=== PATIENT | female | born 1990 | race Caucasian/White ===

== ENCOUNTER 2016-09-07 15:20 | Emergency (ER) | payer OTHER | END 2016-09-07 17:37 | disposition left against medical advice (07) | LOC: ER1 15:20 | DX: Z53.21 Procedure and treatment not carried out due to patient leaving prior to being seen by health care provider (principal) ==

== ENCOUNTER 2016-09-25 21:48 | Emergency (ER) | payer OTHER ==
[2016-09-25 23:27] LABS: HEMOGLOBIN 13.7 gm/dl (12.3-15.3); RED BLOOD COUNT 4.4 M/UL (4.00-5.10); WHITE BLOOD COUNT 6.5 K/UL (4.5-11.0)
[2016-09-25 23:53] LABS: BUN/CREATININE RATIO 20 (0-10)
== END 2016-09-26 01:38 | disposition home or self-care (01) ==
LOC: ER1 21:48
PROVIDERS: Physician Assistant
DX: R10.813 Right lower quadrant abdominal tenderness (principal); N83.202 Unspecified ovarian cyst, left side; F17.210 Nicotine dependence, cigarettes, uncomplicated; Z88.8 Allergy status to other drugs, medicaments and biological substances; Z86.711 Personal history of pulmonary embolism
CPT/HCPCS: 36415; 76830; 80053; 81001; 83690; 85025; 87086; 96361; 96374; 99284; J2405; J7030

== ENCOUNTER → 2016-09-25 | Outpatient (CLI) | payer OTHER | LOC: LAB 17:48 | DX: O20.0 Threatened abortion (principal) | CPT/HCPCS: 36415; 84702 ==